=== PATIENT | female | born 1940 | race Caucasian/White ===

== ENCOUNTER 2017-02-06 06:50 | Inpatient (IN) ==
[~2017-02-06 06:50] MED LIST: ERTAPENEM 1 GM VIAL ONE; Ertapenem Inj 1 GM in Sodium Chloride 0.9% 100 ML IV ONE; LIDOCAINE W/ SODIUM BICARB 0.5 ML SYR ONE; LIDOCAINE W/ SODIUM BICARB 0.5 ML SYR SUBD ONE; Lactated Ringers 1,000 ML PRIMARY IV ONE; Sodium Chloride 0.9% 100 ML IV ONE
[2017-02-06] MEDS ORDERED: PROPOFOL 10 MG/1 ML (200 MG/20 ML) VIAL IV ONE (06:53)
[2017-02-06] MEDS ORDERED: LIDOCAINE MPF 2% - 5 ML (20 MG/1 ML) ONE (06:53)
[2017-02-06] MEDS ORDERED: Sodium Chloride 0.9% vial 20 ML ONE (06:53)
[2017-02-06] MEDS ORDERED: SUFENTANIL 50 MCG/1 ML ONE (06:59)
[2017-02-06] MEDS ORDERED: MIDAZOLAM 5 MG/1 ML ONE (06:59)
[2017-02-06] MEDS ORDERED: Sodium Chloride 0.9% vial 10 ML ONE (07:00)
[2017-02-06] MEDS ORDERED: KETAMINE 100 MG/1 ML - 5 ML ONE (07:01)
[2017-02-06] MEDS ORDERED: fentaNYL Inj 100 MCG/2 ML VIAL IVP PRN (07:08)
[2017-02-06] MEDS ORDERED: ATROPINE SULFATE 0.4 MG/1 ML VIAL IVP PRN (07:08)
[2017-02-06] MEDS ORDERED: Ondansetron ODT Tab 8 MG TAB PO PRN (07:08)
[2017-02-06] MEDS ORDERED: NORMAL SALINE 10 ML SYRINGE FLUSH IVP PRN (07:08)
[2017-02-06] MEDS ORDERED: ONDANSETRON 4 MG/2 ML VIAL IVP PRN ×2 (07:08→13:51)
[2017-02-06] MEDS ORDERED: HYDROmorphone 2 MG/1 ML IVP PRN (07:08)
[2017-02-06] MEDS ORDERED: BUPIVACAINE 0.5% W/EPI MPF -30 ML VIAL IV ONE (07:12)
[2017-02-06] MEDS ORDERED: Lactated Ringers 1,000 ML PRIMARY IV SCH (07:15)
[2017-02-06] MEDS ORDERED: LIDOCAINE HCL 2 % 10 ML JELLY URO-JECT TOPICAL ONE ×2 (07:45→08:44)
[2017-02-06] MEDS ORDERED: PHENYLEPHRINE 10,000 MCG/1 ML VIAL ONE (08:04)
[2017-02-06] MEDS ORDERED: Hetastarch 6% + NS 500 ML IV ONE (08:14)
[2017-02-06] MEDS ORDERED: ROCURONIUM 10 MG/1 ML - 5 ML VIAL IVP ONE (08:53)
[2017-02-06] MEDS ORDERED: Lactated Ringers 1,000 ML PRIMARY IV ONE ×2 (09:22→09:59)
[2017-02-06] MEDS ORDERED: BUPivacaine Liposome/PF (Exparel) Inj 20ml vial INFIL ONE (10:04)
[2017-02-06] MEDS ORDERED: Sodium Chloride 0.9% vial 40 ML ONE (10:04)
[2017-02-06] MEDS ORDERED: KETOROLAC 30 MG/1 ML VIAL ONE (10:17)
[2017-02-06] MEDS ORDERED: DEXAMETHASONE PF 10 MG/1 ML VIAL ONE (10:19)
[2017-02-06] MEDS ORDERED: NEOSTIGMINE 1 MG/1 ML - 10 ML ONE (10:21)
[2017-02-06] MEDS ORDERED: GLYCOPYRROLATE 0.2 MG/1 ML VIAL ONE (10:21)
[2017-02-06] MEDS ORDERED: ONDANSETRON 4 MG/2 ML VIAL ONE (10:26)
[2017-02-06] MEDS ORDERED: HYDROmorphone 2 MG/1 ML ONE (10:34)
--- NOTE | 2017-02-06 11:06 | GEN.OPNOTE ---
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 Postoperative Diagnosis: Same. Procedure: Takedown of colostomy with partial colectomy and low pelvic anastomosis. Surgeon: Julian Davila MD Enamel Drier: García Luna MD Anesthesia Provider: Milagros Castro CRNA Anesthesia Type: General Estimated Blood Loss (mL): 125 Fluids: 3700 mL of crystalloid. 500 mL of Hespan. 1 g of IV Invanz at the start of the procedure. 15 mg of IV Toradol at the end of the procedure. Intraoperative urine output 100 mL. Pathology: Specimen to pathology included the stoma with partial colectomy as well as the anastomotic rings. Indications: Patient with a colostomy due for reversal. Findings: Multiple filmy adhesions. No intra-abdominal pathology. Complications: None. Operative Summary: The patient was taken to the operating suite and placed on the operating table in the supine position. Following induction of adequate general anesthetic the stoma was sewn shut. The patient was placed in universal stirrups and the abdomen and perineum were prepped and draped in a sterile fashion. A surgical timeout was done. A lower midline incision was made, this included removing some of the prior scar. This was carried down to the subcutaneous tissue to the fascia. The fascia was elevated and incised. The old Prolene suture was removed. The abdomen was entered and adhesions taken down. Attention was turned to the colostomy. It was freed circumferentially. The small bowel was run from the ligament of Treitz down to the ileocecal valve. Adhesions were taken down. Hemostasis was assured. The stoma was excised in elliptical fashion. This was brought through the abdominal wall. A pursestring suture clamp was placed on the descending colon and then closed. A 2-0 Maxon was placed. The colostomy and distal colon was excised. Thus we had a pursestring suture on the descending colon. Attention was turned to the rectal stump. It was freed up circumferentially. Appropriate irrigation and suctioning were performed. Hemostasis was assured. The pursestring clamp was unclamped. The proximal bowel was sized to a 29 mm endoluminal stapler. The anvil was placed in the proximal bowel and the pursestring suture was tied. Dr. Luna then went to the perineal side. Dilators were passed through the anus into the rectal stump. Finally the stapling device was passed to the end of the rectal stump. The trocar was advanced. The anvil was connected. The device was closed and fired. The device was removed in the usual fashion. A bowel clamp was placed proximal to the anastomosis. Dr. Luna then placed a colonoscope into the rectum and advanced it to the anastomosis. The anastomosis could be seen circumferentially and was intact. There was fluid in the pelvis and there was no evidence of any air leak at the anastomosis. There was no tension on the anastomosis. The air was suctioned out and the colonoscope was withdrawn. All personnel then changed gowns and gloves. Attention was turned to the abdomen. Colostomy site was closed with an inner layer of 0 Vicryl in the peritoneum and scar tissue on the inside. The anterior fascia was closed with 0 Vicryl and [id number] sutures of 0 Prolene were also placed. The site was irrigated and closed with surgical estephanie. Appropriate irrigation and suctioning were performed in the abdomen. Hemostasis was assured. The intestines were returned to a relative anatomic position and covered with omentum. The midline fascia was closed with running #1 Prolenes. One was started from each end. These were tied independently approximately in the middle. The wounds were irrigated. All wounds were infiltrated with Exparel. The wounds were closed with surgical estephanie followed by an appropriate dressing. The patient tolerated all aspects of the procedure well without complication. She was taken to the recovery room in stable condition. All counts were correct.
--- NOTE | 2017-02-06 14:07 | CRNA.PROGR ---
Anesthesia Time - - Start date: 02/06/17 End date: 02/06/17 - Procedure/Recovery Time Anesthesia : Time In: 07:47 Anesthesia : Time Out: 10:51 Anesthesia : Total Time: 184 - Total Anesthesia Time Total Anesthesia Time (minutes): 184 - Other Weight: 58.967 kg Height: 5 ft 5 in Body Mass Index (BMI): 21.6 Physical Status: P2 (Age greater than 70.) Anesthesia Type: General Anesthesia : ET
--- NOTE | 2017-02-06 14:07 | CRNA.PROGR ---
Anesthesia Recovery Phase I - Post Anesthesia Evaluation Patient's Condition on Arrival in Phase I: Stable Patient's Condition on Arrival in Phase II: Stable Pain Level: 3 (Concerned re urine output, oherwise stable.)
--- NOTE | 2017-02-06 14:09 | CRNA.PROGR ---
Post Anesthesia Phase II - Post Anesthesia Phase II Patient Stable and Discharged To: Med/Surg Care Assumed By Surgeon: Julian Davila MD Temperature: 98.5 F Pulse Rate: 82 Respiratory Rate: 21 Blood Pressure: 133/78 Pulse Ox: 99 Total Tiana Score at Discharge: 9 Post Anesthesia Discharge Criteria Met: Yes
[2017-02-06] MEDS: D5-LR + 20mEq KCL 1,000 ML PRIMARY IV SCH ×2 (14:50→23:35)
[2017-02-06] MEDS: Acetaminophen 1000mg Inj 1,000 MG/100 ML VIAL IV PRN (14:51)
[2017-02-06] MEDS: MORPHINE SULFATE 2 MG/1 ML IVP PRN (14:51)
[2017-02-06] MEDS: Lactated Ringers 1,000 ML PRIMARY IV SCH (15:54)
[2017-02-06] MEDS: KETOROLAC 15 MG/1 ML VIAL IVP SCH ×2 (16:28→22:17)
[2017-02-07] MEDS: KETOROLAC 15 MG/1 ML VIAL IVP SCH ×4 (04:42→22:26)
[2017-02-07 07:09] LABS: BLOOD UREA NITROGEN 13 mg/dL (7-22); BUN/CREATININE RATIO 14.44 (6-20); SERUM ALBUMIN 2.6 g/dL (3.5-4.8)
[2017-02-07 07:21] LABS: BASOPHILS % (AUTO) 0.5 % (0-1); EOSINOPHILS % (AUTO) 0.8 % (0-8); Hemoglobin [HGB] 11.3 g/dL (12.0-16.0); MEAN CORPUSCULAR HEMOGLOBIN 27.9 PG (27-31); MEAN CORPUSCULAR HGB CONC 33.3 g/dL (33-37); MEAN CORPUSCULAR VOLUME 84 FL (81-99); MEAN PLATELET VOLUME 7.4 FL (7.4-12.2); MONOCYTES % (AUTO) 10.7 % (5-15); NEUTROPHILS % (AUTO) 63.9 % (50-80); RED BLOOD COUNT 4.05 10^6/uL (4.20-5.40)
[2017-02-07 07:22] LABS: BASOPHILS # (AUTO) 0.06 10*3/UL; LYMPHOCYTES # (AUTO) 2.87 10*3/uL; MONOCYTES # (AUTO) 1.27 10*3/UL (0.3-0.8); NEUTROPHILS # (AUTO) 7.61 10*3/UL; PLATELET MORPHOLOGY COMMENT NORMAL MORPHOLOGY (NORM); RBC MORPHOLOGY COMMENT NORMAL MORPHOLOGY (NORM); WBC MORPHOLOGY COMMENT NORMAL MORPHOLOGY (NORM)
[2017-02-07] MEDS: D5-LR + 20mEq KCL 1,000 ML PRIMARY IV SCH ×2 (07:38→16:27)
[2017-02-07] MEDS: ERTAPENEM IV SCH (07:40)
[2017-02-07] MEDS: SODIUM CHLORIDE 0.9% IV SCH (07:40)
[2017-02-07] MEDS ORDERED: Ertapenem Inj 1 GM in Sodium Chloride 0.9% 100 ML IV SCH (08:00)
[2017-02-07] MEDS: MORPHINE SULFATE 2 MG/1 ML IVP PRN (08:47)
[2017-02-07] MEDS: NORMAL SALINE 10 ML SYRINGE FLUSH IVP PRN ×4 (08:48→17:54)
[2017-02-07] MEDS: Pantoprazole Inj 40 MG in Normal Saline Flush 10 ML IVP SCH (09:55)
--- NOTE | 2017-02-07 14:54 | PDOC(PROG) ---
Subjective Post Op Day: 1 Pain Management: Toradol Boothe Catheter: Yes Flatus: No Diet: NPO Ambulating: Yes Date and Time of Service: 02/07/2017 to 30 p.m. Interval History: Overall had a pretty good night. Had a couple episodes where she felt a sharp jerking pain. Sounds more like muscle spasm or gas pains than anything else. She has only had 2 doses of morphine since her surgery. She is ambulating. She has a Boothe catheter in place. She is fluid long. She has gained some weight and looks a little edematous. Her urine output is decreasing a bit but we will watch it for now. May need to consider some Lasix. Patient denies nausea. Her throat and mouth are dry and she would like some liquids. She's had no flatus or bowel movement. She denies fever or chills. She is working on her incentive spirometer. Objective : Data - Labs CBC and BMP: 02/07/17 06:45 02/07/17 06:45 - Vital Signs Vital Signs and I&O: Vital Signs - Last Taken Temperature 97.3 F 02/07/17 13:00 Pulse Rate 81 02/07/17 13:00 Respiratory Rate 16 02/07/17 13:00 Blood Pressure 95/81 02/07/17 13:00 Pulse Ox 91 02/07/17 13:00 Intake and Output (24hr x 4 totals) 02/05/17 02/06/17 02/07/17 02/08/17 05:59 05:59 05:59 05:59 Intake Total 5480 / 5480 80 / 80 Output Total 775 / 775 225 / 225 Balance 4705 / 4705 -145 / -145 Objective : Exam - General General Appearance: No Acute Distress, Cooperative, Average Body Hiatus - Respiratory Respiratory Exam: Clear to Auscultation - Bilaterally, Breathing Non Labored - Cardiovascular Cardiovascular Exam: RRR, No Murmur - GI/Abdominal GI/Abdominal Exam: Non Distended, Soft, Diminished Bowel Sounds Additional GI/Abdominal Exam Details: The dressing is clean and dry and intact. She has some mild and diffuse abdominal tenderness. Seems mostly incisional in nature. No evidence of abdominal rigidity or peritoneal signs. Bowel tones are hypoactive. - Neurological Neurological Exam: Alert, Oriented x 3 - Psychiatric Psychiatric Exam: Normal Affect, Normal Mood Assessment and Plan - Patient Problems (1) Status post partial resection of colon Current Visit: Yes Status: Acute Priority: High Onset Date: 02/06/17 Comment: Surgically doing stable with no apparent problems. We'll continue postoperative care. If her urine output drops off consider cardio-dynamics and/ or low-dose Lasix. She seems to have plenty of fluid on board. We will start small amounts of clear liquids. Await return of GI function. Code(s): Z90.49 - Acquired absence of other specified parts of digestive tract
[2017-02-07] MEDS ORDERED: FUROSEMIDE 10 MG/1 ML - 2 ML VIAL IVP STA (16:49)
--- NOTE | 2017-02-07 19:20 | CRNA.PROGR ---
Anesthesia Note - Progress Notes Anesthesia Progress Note: Resting in bed, awake. States she's been around nursing station times 3 today. Mostly comfortable except for " gas " pain. Boothe catheter still in with large amounts of urine output since furosemide at 1800. Throat very dry. Intake and Output (24hr x 4 totals) 02/05/17 02/06/17 02/07/17 02/08/17 05:59 05:59 05:59 05:59 Intake Total 5480 / 5480 1521 / 1521 Output Total 775 / 775 320 / 320 Balance 4705 / 4705 1201 / 1201 Vital Signs (24 hrs) Temp Pulse Pulse Resp BP BP Pulse Ox 02/07/17 16:39 99.0 F 76 18 129/72 92 02/07/17 13:00 97.3 F 81 16 95/81 91 02/07/17 08:21 98.4 F 78 16 114/63 94 02/07/17 05:00 97.5 F 77 16 102/62 95 02/07/17 00:24 98.0 F 69 16 115/62 93 02/06/17 21:00 97.3 F 85 20 115/62 96 No apparent anesthetic difficulties.
[2017-02-08] MEDS: D5-LR + 20mEq KCL 1,000 ML PRIMARY IV SCH ×3 (00:15→17:16)
[2017-02-08] MEDS: KETOROLAC 15 MG/1 ML VIAL IVP SCH ×4 (04:06→22:05)
[2017-02-08 06:45] LABS: BLOOD UREA NITROGEN 10 mg/dL (7-22); SERUM ALBUMIN 2.6 g/dL (3.5-4.8)
[2017-02-08 06:56] LABS: Hematocrit [HCT] 32.9 % (37.0-47.0); MEAN CORPUSCULAR VOLUME 84 FL (81-99); RED BLOOD COUNT 3.94 10^6/uL (4.20-5.40)
[2017-02-08 06:57] LABS: BASOPHILS % (AUTO) 0.6 % (0-1); EOSINOPHILS % (AUTO) 2.6 % (0-8); MEAN CORPUSCULAR HGB CONC 33.5 g/dL (33-37); MEAN PLATELET VOLUME 8.1 FL (7.4-12.2); MONOCYTES % (AUTO) 9.6 % (5-15); NEUTROPHILS # (AUTO) 5.24 10*3/UL; NEUTROPHILS % (AUTO) 56.4 % (50-80)
[2017-02-08 06:58] LABS: BASOPHILS # (AUTO) 0.06 10*3/UL; EOSINOPHILS # (AUTO) 0.24 10*3/UL; LYMPHOCYTES # (AUTO) 2.86 10*3/uL; MONOCYTES # (AUTO) 0.89 10*3/UL (0.3-0.8); PLATELET MORPHOLOGY COMMENT NORMAL MORPHOLOGY (NORM); RBC MORPHOLOGY COMMENT NORMAL MORPHOLOGY (NORM); WBC MORPHOLOGY COMMENT NORMAL MORPHOLOGY (NORM)
[2017-02-08] MEDS: ERTAPENEM IV SCH (07:30)
[2017-02-08] MEDS: SODIUM CHLORIDE 0.9% IV SCH (07:30)
[2017-02-08] MEDS: Pantoprazole Inj 40 MG in Normal Saline Flush 10 ML IVP SCH (08:06)
[2017-02-08] MEDS: Acetaminophen 1000mg Inj 1,000 MG/100 ML VIAL IV PRN ×2 (08:07→16:15)
--- NOTE | 2017-02-08 13:04 | PDOC(PROG) ---
Subjective Post Op Day: 2 Pain Management: Toradol Boothe Catheter: No Flatus: Yes Diet: Clear Liquids Ambulating: Yes Date and Time of Service: 02/08/2017 1 PM Interval History: Doing very well. No complaints or problems. Catheter has been removed. She is voiding. She is ambulating. She is passing gas. She is comfortable. No nausea or vomiting. She would like some broth. Objective : Data - Labs CBC and BMP: 02/08/17 05:59 02/08/17 05:59 - Vital Signs Vital Signs and I&O: Vital Signs - Last Taken Temperature 97.5 F 02/08/17 11:26 Pulse Rate 69 02/08/17 11:26 Respiratory Rate 18 02/08/17 11:26 Blood Pressure 122/76 02/08/17 11:26 Pulse Ox 94 02/08/17 11:26 Intake and Output (24hr x 4 totals) 02/06/17 02/07/17 02/08/17 02/09/17 05:59 05:59 05:59 05:59 Intake Total 5480 / 5480 3085 / 3085 120 / 120 Output Total 775 / 775 1720 / 1720 790 / 790 Balance 4705 / 4705 1365 / 1365 -670 / -670 Objective : Exam - General General Appearance: No Acute Distress, Cooperative - Respiratory Respiratory Exam: Clear to Auscultation - Bilaterally, Breathing Non Labored - Cardiovascular Cardiovascular Exam: RRR, No Murmur - GI/Abdominal GI/Abdominal Exam: Non Distended, Soft, Diminished Bowel Sounds Additional GI/Abdominal Exam Details: The dressing is clean and dry and intact. There is some incisional tenderness. There are good bowel tones today but they remain mildly hypoactive. No focal tenderness. - Neurological Neurological Exam: Alert, Oriented x 3 - Psychiatric Psychiatric Exam: Normal Affect, Normal Mood Assessment and Plan - Patient Problems (1) Status post partial resection of colon Current Visit: Yes Status: Acute Priority: High Onset Date: 02/06/17 Comment: She looks great. She is doing extremely well. We will give her clear liquids as tolerated and cut back on her IV fluids. If she continues at the present weeks rate she will be on full liquids tomorrow. Continue postoperative care. Code(s): Z90.49 - Acquired absence of other specified parts of digestive tract
[2017-02-08] MEDS ORDERED: ENALAPRILAT DIHYDRATE 1.25 MG/1 ML VIAL IVP PRN (17:01)
[2017-02-09] MEDS: KETOROLAC 15 MG/1 ML VIAL IVP SCH ×4 (05:09→22:09)
[2017-02-09] MEDS: ERTAPENEM IV SCH (08:39)
[2017-02-09] MEDS: SODIUM CHLORIDE 0.9% IV SCH (08:39)
[2017-02-09] MEDS: Pantoprazole Inj 40 MG in Normal Saline Flush 10 ML IVP SCH (09:12)
[2017-02-09] MEDS: NORMAL SALINE 10 ML SYRINGE FLUSH IVP PRN (10:30)
--- NOTE | 2017-02-09 12:12 | PDOC(PROG) ---
Subjective Post Op Day: 3 Pain Management: Toradol Boothe Catheter: No Flatus: Yes Diet: Clear Liquids Ambulating: Yes Date and Time of Service: 02/09/2017 12 noon Interval History: Doing very well. Pain well controlled. Continues to pass gas. She is feeling some abdominal gurgling. She is tolerating clear liquids. She is voiding. Her weight is down approximately 4 pounds. She is less puffy. No abdominal pain. No nausea. She reports the clear liquids do not taste good. She would like to try something more. She looks great. Objective : Data - Labs CBC and BMP: 02/08/17 05:59 02/08/17 05:59 - Vital Signs Vital Signs and I&O: Vital Signs - Last Taken Temperature 98.4 F 02/09/17 09:00 Pulse Rate 84 02/09/17 09:00 Respiratory Rate 14 02/09/17 09:00 Blood Pressure 142/78 02/09/17 09:00 Pulse Ox 94 02/09/17 09:00 Intake and Output (24hr x 4 totals) 02/07/17 02/08/17 02/09/17 02/10/17 05:59 05:59 05:59 05:59 Intake Total 5480 / 5480 3085 / 3085 2315 / 2315 840 / 840 Output Total 775 / 775 1720 / 1720 3040 / 3040 Balance 4705 / 4705 1365 / 1365 -725 / -725 840 / 840 Objective : Exam - General General Appearance: No Acute Distress, Cooperative - Respiratory Respiratory Exam: Clear to Auscultation - Bilaterally, Breathing Non Labored - Cardiovascular Cardiovascular Exam: RRR, No Murmur - GI/Abdominal GI/Abdominal Exam: Normal Bowel Sounds, Non Tender, Non Distended, Soft Additional GI/Abdominal Exam Details: The dressing was removed. The incisions look great. No sign of infection. Abdominal exam is benign. Active bowel tones. - Neurological Neurological Exam: Alert, Oriented x 3 - Psychiatric Psychiatric Exam: Normal Affect, Normal Mood Assessment and Plan - Patient Problems (1) Status post partial resection of colon Current Visit: Yes Status: Acute Priority: High Onset Date: 02/06/17 Comment: Doing exceptionally well. We'll advance her to a full liquid diet. We will allow her to shower. We'll check some labs in the morning. We will discontinue the Invanz after the dose tomorrow morning. Plan soft diet and possible discharge tomorrow pending clinical course. Code(s): Z90.49 - Acquired absence of other specified parts of digestive tract
[2017-02-10] MEDS: KETOROLAC 15 MG/1 ML VIAL IVP SCH ×4 (04:50→22:47)
[2017-02-10 06:10] LABS: BASOPHILS % (AUTO) 0.4 % (0-1); EOSINOPHILS % (AUTO) 3.5 % (0-8); Hematocrit [HCT] 35.8 % (37.0-47.0); Hemoglobin [HGB] 11.9 g/dL (12.0-16.0); LYMPHOCYTES # (AUTO) 2.72 10*3/uL; MEAN CORPUSCULAR HEMOGLOBIN 27.7 PG (27-31); MEAN CORPUSCULAR HGB CONC 33.2 g/dL (33-37); MEAN CORPUSCULAR VOLUME 83 FL (81-99); MEAN PLATELET VOLUME 7.4 FL (7.4-12.2); MONOCYTES % (AUTO) 8.7 % (5-15); NEUTROPHILS # (AUTO) 4.21 10*3/UL; NEUTROPHILS % (AUTO) 53.1 % (50-80); RED BLOOD COUNT 4.29 10^6/uL (4.20-5.40)
[2017-02-10 06:11] LABS: BASOPHILS # (AUTO) 0.03 10*3/UL; EOSINOPHILS # (AUTO) 0.28 10*3/UL; MONOCYTES # (AUTO) 0.69 10*3/UL (0.3-0.8); PLATELET MORPHOLOGY COMMENT NORMAL MORPHOLOGY (NORM); RBC MORPHOLOGY COMMENT NORMAL MORPHOLOGY (NORM); WBC MORPHOLOGY COMMENT NORMAL MORPHOLOGY (NORM)
[2017-02-10 06:14] LABS: BLOOD UREA NITROGEN 8 mg/dL (7-22)
[2017-02-10] MEDS: PANTOPRAZOLE 40 MG TABLET PO SCH (07:16)
[2017-02-10] MEDS: SODIUM CHLORIDE 0.9% IV SCH (08:04)
[2017-02-10] MEDS: ERTAPENEM IV SCH (08:04)
[2017-02-10] MEDS: NORMAL SALINE 10 ML SYRINGE FLUSH IVP PRN ×3 (08:05→16:11)
--- NOTE | 2017-02-10 10:24 | PDOC(PROG) ---
Subjective Post Op Day: 4 Pain Management: Toradol Boothe Catheter: No Flatus: Yes Diet: full liquids Ambulating: Yes Date and Time of Service: 02/10/2017 10:15 AM Interval History: Doing very well. Looks great. Wants to go home. She is passing gas regularly. She is feeling some rumbling in her abdomen. She has passed no stool. She is tolerating a full liquid diet. There is no nausea. Objective : Data - Labs CBC and BMP: 02/10/17 05:50 02/10/17 05:50 - Vital Signs Vital Signs and I&O: Vital Signs - Last Taken Temperature 97.8 F 02/10/17 06:40 Pulse Rate 92 02/10/17 06:40 Respiratory Rate 16 02/10/17 07:00 Blood Pressure 144/84 02/10/17 06:40 Pulse Ox 94 02/10/17 06:40 Intake and Output (24hr x 4 totals) 02/08/17 02/09/17 02/10/17 02/11/17 05:59 05:59 05:59 05:59 Intake Total 3085 / 3085 2315 / 2315 1360 / 1360 740 / 740 Output Total 1720 / 1720 3040 / 3040 850 / 850 1000 / 1000 Balance 1365 / 1365 -725 / -725 510 / 510 -260 / -260 Objective : Exam - General General Appearance: No Acute Distress, Cooperative - Respiratory Respiratory Exam: Clear to Auscultation - Bilaterally, Breathing Non Labored - Cardiovascular Cardiovascular Exam: RRR, No Murmur - GI/Abdominal GI/Abdominal Exam: Normal Bowel Sounds, Non Distended, Soft Additional GI/Abdominal Exam Details: The incisions look good. Some mild incisional tenderness only. No signs of peritoneal irritation. - Neurological Neurological Exam: Alert, Oriented x 3 - Psychiatric Psychiatric Exam: Normal Affect, Normal Mood Assessment and Plan - Patient Problems (1) Status post partial resection of colon Current Visit: Yes Status: Acute Priority: High Onset Date: 02/06/17 Comment: Her postoperative course is nothing short of remarkable. She is doing extremely well. She is tolerating a full liquid diet. She is passing gas. It is my preference she tolerates a solid diet before discharge. I want to try to avoid any possibility of complications. We will plan to feed her a soft mechanical diet today with discharge home tomorrow as long as she tolerates the diet. She agrees. Her antibiotics have been stopped. Her lab work all looks good. Code(s): Z90.49 - Acquired absence of other specified parts of digestive tract
[2017-02-11] MEDS: KETOROLAC 15 MG/1 ML VIAL IVP SCH ×2 (03:56→11:00)
[2017-02-11 04:23] VITALS: RESP 16
[2017-02-11] MEDS: PANTOPRAZOLE 40 MG TABLET PO SCH (07:11)
[2017-02-11 07:18] VITALS: BP 145/93; TEMP 97.5; O2SAT 95
--- NOTE | 2017-02-11 11:43 | DCSUMMARY ---
Discharge Summary Admit Date: 02/06/17 Discharge Date: 02/11/17 Admitting Diagnosis: status post partial colectomy for perforated diverticular disease. Colosto Discharge Diagnosis: Same. Status post partial colectomy with takedown of her colostomy. Primary Surgery and Date: 02/06/2017-partial colectomy with reversal of her colostomy. Hospital Course: Patient underwent a partial colectomy and takedown of her colostomy. It was uncomplicated. Her postoperative course has been unremarkable. She is postoperative day #5 today. She is tolerating a regular diet. She is now had two bowel movements. She is comfortable. There is no nausea or vomiting. No abdominal pain. She is ready to be discharged home for outpatient follow-up. Exam - Vitals Vital Signs: Vital Signs Temperature 97.5 F Temperature Source Oral Pulse Rate [Apical] 86 Pulse Rate [Pulse Oximeter] 86 Pulse Rate 76 Respiratory Rate 16 Blood Pressure [Left Arm] 145/93 Blood Pressure 129/72 Pulse Ox 95 Oxygen Flow Rate 1 Oxygen Delivery Method Room Air Height 5 ft 5 in Weight 133 lb 12.8 oz - General General Appearance: No Acute Distress, Cooperative - Respiratory Respiratory Exam: POSITIVE: Clear to Auscultation - Bilaterally, Breathing Non Labored - Cardiovascular Cardiovascular Exam: POSITIVE: RRR, No Murmur - GI/Abdominal GI/Abdominal Exam: POSITIVE: Normal Bowel Sounds, Non Tender, Non Distended, Soft Additional GI/Abdominal Exam Details: The incisions look good. Vero are intact. No signs of wound infection or seroma. Mild bruising. Benign abdominal exam other than incisional tenderness which is mild. Patient is taking nothing for pain. - Neurological Neurological Exam: POSITIVE: Alert, Oriented x 3 - Psychiatric Psychiatric Exam: POSITIVE: Normal Affect, Normal Mood Data Procedures: 02/06/2017-take down of her colostomy. Patient Problems - Patient Problem List (1) Status post partial resection of colon Current Visit: Yes Status: Acute Onset Date: 02/06/17 Priority: High Comment: Doing very well. Tolerating a regular diet. He has now had to bowel movements. No signs of complications. Ready for discharge for outpatient follow-up. Code(s): Z90.49 - Acquired absence of other specified parts of digestive tract Category: Medical
== END 2017-02-11 12:20 | disposition home or self-care (01) | DRG 941 ==
LOC: OPS 06:50 → EDSTATUS 08:00 → MED/SURG 13:42
PROVIDERS: ADMIT Surgery; ATTEND Surgery